=== PATIENT | female | born 1990 | race American Indian/Alaskan Native ===

== ENCOUNTER 2017-06-17 06:33 | Day surgery (SDC) | payer MEDICAID ==
--- NOTE | 2017-06-17 07:45 | Anesthesia Consultation ---
Anesthesia Consult and Med Hx Date of service: 06/17/17 - Airway Anesthetic Teeth Evaluation: Good ROM Head & Neck: Adequate Mental/Hyoid Distance: Adequate Mallampati Class: Class II Intubation Access Assessment: Probably Good - Pulmonary Exam CTA: Yes - Cardiac Exam Cardiac Exam: RRR - Pre-Operative Health Status ASA Pre-Surgery Classification: ASA2 Proposed Anesthetic Plan: MAC - Pulmonary Hx Smoking: No Hx Sleep Apnea: No - Cardiovascular System Hx Hypertension: Yes - Endocrine Hx Non-Insulin Dependent Diabetes: No - Other Systems Hx Obesity: Yes
--- NOTE | 2017-06-17 07:46 | Anesthesia Day of Surgery ---
Anesthesia Day of Surgery - Day of Surgery Patient Examined: Yes Patient H&P Reviewed: Yes Patient is NPO: Yes
--- NOTE | 2017-06-17 08:07 | Discharge Summary ---
Providers - Providers Attending physician: CHELA TRAN Hospitalization Hospital course: 27 y.o. presented to GI for EGD. Pt tolerated the procedure well Disposition: DC-01 TO HOME OR SELFCARE Core Measure Documentation - Palliative Care Palliative Care/ Comfort Measures: Not Applicable - Core Measures Any of the following diagnoses?: none Exam - Physical Exam Narrative exam: No change from prior Plan Activity: no restrictions Diet: other (bariatric plan diet ) Follow up with: YARELIS SWEENEY [Other] - 7 Days
[2017-06-17] MEDS ORDERED: DIPRIVAN 10 MG/ML IV ONE (08:08)
[2017-06-17] MEDS ORDERED: NACL 0.9% 1000 ML 1,000 ML IV SCH (10:00)
[2017-06-17 12:23] VITALS: BP 137/85
--- NOTE | 2017-06-17 12:32 | Post Anesthesia Evaluation ---
- Post Anesthesia Evaluation Patient Participated: Yes Airway Patent: Yes Stable Respiratory Function: Yes Nausea/Vomiting: No Temp > 96.8F: Yes Pain Manageable: Yes Adequeate Hydration: Yes Anesthesia Complications: No Block Receding Appropriately: Not Applicable Patient on Ventilator: No
== END 2017-06-17 06:34 | disposition home or self-care (01) ==
LOC: GIO 06:33
PROVIDERS: ATTEND Surgery
DX: R10.13 Epigastric pain (principal); K44.9 Diaphragmatic hernia without obstruction or gangrene; E66.01 Morbid (severe) obesity due to excess calories; I10 Essential (primary) hypertension; Z82.49 Family history of ischemic heart disease and other diseases of the circulatory system; Z83.3 Family history of diabetes mellitus; Z68.42 Body mass index [BMI] 45.0-49.9, adult; Z90.49 Acquired absence of other specified parts of digestive tract
CPT/HCPCS: 43235; 81025; J2704; J7030

== ENCOUNTER 2017-06-24 07:30 | Inpatient (IN) | payer MEDICAID ==
[~2017-06-24 07:30] MED LIST: PEPCID IV NR; TRANSDERM-SCOP TD NR; VERSED IV NR
[2017-06-24] MEDS ORDERED: NACL BACTERIOSTATIC INFILTRATI ONE (08:49)
[2017-06-24] MEDS ORDERED: ZOFRAN IV PRN ×2 (08:51→10:23)
--- NOTE | 2017-06-24 08:51 | Anesthesia Day of Surgery ---
Anesthesia Day of Surgery - Day of Surgery Patient Examined: Yes Patient H&P Reviewed: Yes Patient is NPO: Yes
--- NOTE | 2017-06-24 08:55 | Anesthesia Consultation ---
Anesthesia Consult and Med Hx Date of service: 06/24/17 - Airway Anesthetic Teeth Evaluation: Good ROM Head & Neck: Adequate Mental/Hyoid Distance: Adequate Mallampati Class: Class II Intubation Access Assessment: Probably Good - Pulmonary Exam CTA: Yes - Cardiac Exam Cardiac Exam: RRR - Pre-Operative Health Status ASA Pre-Surgery Classification: ASA3 Proposed Anesthetic Plan: General - Pulmonary Hx Smoking: No Hx Asthma: No Hx Sleep Apnea: No - Cardiovascular System Hx Hypertension: No - Central Nervous System Hx Psychiatric Problems: No - Endocrine Hx Non-Insulin Dependent Diabetes: No - Other Systems Hx Alcohol Use: No Hx Substance Use: No Hx Cancer: No Hx Obesity: Yes (morbid, BMI > 40)
[2017-06-24] MEDS ORDERED: ANCEF/STERILE WATER 2 GM/20 ML 2 GM/20 ML SYRINGE IV NR (09:00)
[2017-06-24] MEDS: LACTATED RINGERS 1,000 ML IV SCH ×3 (09:00→18:32)
[2017-06-24] MEDS ORDERED: FLAGYL 500 MG/100 ML 500 MG/100 ML BAG IV NR (09:00)
[2017-06-24] MEDS ORDERED: LOVENOX SUB-Q NR (09:00)
[2017-06-24 09:05] LABS: Basophils % (Auto) 0.9 % (0.0-1.8); Eosinophils % (Auto) 0.7 % (0.0-4.3); Hematocrit 37.5 % (30.3-42.9); Hemoglobin 12.6 gm/dl (10.1-14.3); Mean Corpuscular HGB Conc 34 % (30-34); Mean Corpuscular Hemoglobin 28 pg (28-32); Mean Corpuscular Volume 84 fl (79-97); Platelet Count 394 K/mm3 (140-440); Red Blood Count 4.45 M/mm3 (3.65-5.03); Red Cell Distribution Width 13.3 % (13.2-15.2); White Blood Count 8.7 K/mm3 (4.5-11.0)
[2017-06-24] MEDS ORDERED: XYLOCAINE 1% 20 mL ONE (09:24)
[2017-06-24] MEDS ORDERED: MARCAINE-EPI/PF 0.5%-1:200,000 INFILTRATI ONE ×2 (09:25→10:57)
[2017-06-24 09:27] LABS: Anion Gap 21 mmol/L; BUN/Creatinine Ratio 9; Blood Urea Nitrogen 7 mg/dL (7-17); Calcium 9.4 mg/dL (8.4-10.2); Carbon Dioxide 28 mmol/L (22-30); Chloride 93.3 mmol/L (98-107); Glucose 120 mg/dL (65-100); Potassium 3.5 mmol/L (3.6-5.0); Sodium 139 mmol/L (137-145)
[2017-06-24 09:30] LABS: Bacteria,Urine 1+ /HPF (Negative); Bilirubin,Urine NEG (Negative); Blood,Urine NEG (Negative); Ketones,Urine 80 mg/dL (Negative); Leukocyte Esterase,Urine NEG (Negative); Mucus,Urine FEW /HPF; Nitrite,Urine NEG (Negative); Urobilinogen,Urine < 2.0 mg/dL (<2.0)
[2017-06-24] MEDS ORDERED: DIPRIVAN 10 MG/ML IV ONE (10:06)
[2017-06-24] MEDS ORDERED: SUBLIMAZE ONE (10:06)
[2017-06-24] MEDS ORDERED: APRESOLINE IV PRN (10:23)
[2017-06-24] MEDS ORDERED: REGLAN IV PRN (10:23)
[2017-06-24] MEDS ORDERED: DILAUDID IV PRN (10:23)
[2017-06-24] MEDS ORDERED: XYLOCAINE MPF 2% ONE (10:34)
[2017-06-24] MEDS ORDERED: QUELICIN ONE (10:34)
[2017-06-24] MEDS ORDERED: ZEMURON IV ONE (10:34)
[2017-06-24] MEDS ORDERED: DECADRON ONE (10:49)
[2017-06-24] MEDS ORDERED: ROBINUL ONE ×2 (10:50→11:02)
[2017-06-24] MEDS ORDERED: NEOSTIGMINE ONE (10:50)
[2017-06-24] MEDS ORDERED: NACL 0.9% IR ONE ×2 (10:56→11:24)
[2017-06-24] MEDS ORDERED: XYLOCAINE 1% 20 mL INFILTRATI ONE (10:56)
[2017-06-24] MEDS ORDERED: NEO SYNEPHRINE ONE (11:01)
[2017-06-24] MEDS ORDERED: TORADOL ONE (11:20)
--- NOTE | 2017-06-24 11:54 | Operative Report ---
Operative Report Operative Report: Operative Report DATE OF PROCEDURE: 06/24/17 PREOPERATIVE DIAGNOSES: Morbid obesity, hiatal hernia POSTOPERATIVE DIAGNOSES: 1.same as pre-op SURGEON: Vikram Watson M.D. CUSTOM DRESSMAKER: Favian Vasquez CSA PROCEDURE: 1. laparoscopic sleeve gastrectomy 2. laparoscopic hiatal hernia repair ANESTHESIA: General. ESTIMATED BLOOD LOSS: <5 mL. COMPLICATIONS: None. SPECIMEN: Partial gastrectomy. FINDINGS: 1. hiatal hernia INDICATION FOR PROCEDURE: Patient is a 27-year-old female with a long history of morbid obesity. She has tried multiple efforts at weight loss without manager long term care success. She is here today for sleeve gastrectomy. PROCEDURE IN DETAIL: After consent was reviewed, patient was taken back to the operating room, where patient was placed supine on the bed with both arms out. The patient's legs were doubly strapped to the bed. Patient had a foot board in place. Patient had a body warmer placed by anesthesia. Patient was then prepped and draped in normal sterile surgical fashion. After a time-out was called, I made a stab incision in the left sub costal and placed a Veress needle through this incision and insufflated the abdomen to 18 mmHg pressure. I then counted down a handsbreadth below the xiphoid process in the midline and slightly left lateral injected local anesthetic and made about 0.5 cm transverse incision. I then used a 5-mm Optiview trocar to enter into the abdomen. I then placed a 45- degree scope through this port and inspected the abdomen. There was no injury on entry of the abdomen. I then placed one 5-mm port in the right upper quadrant , and 1 subxiphoid below the costovertebral angle. I then placed a 15-mm port about a handsbreadth right lateral and inferior to my RUQ port. I then placed left upper quadrant port along the anterior axillary line in a similar fashion. I then placed the liver retractor through the subxiphoid port and placed the patient in full reverse Trendelenburg. The GE junction was noted to be above the level of the diaphragm. The right and left crura were skeletonized accentuating a small hiatal hernia. The stomach and 2cm of distal esophagus were reduced into the abdominal cavity without tension. An anterior cruraplasty was performed with a figure-of-8 stitch using surgidac suture to reapproximate the crura. I then identified the pylorus and then counted off 6cm from the pylorus. I then used a LigaSure cutting device to enter into the lesser sac. At that point and then I took down the short gastrics all the way up to the left allan. Then I had anesthesia pass down a 36-Samo[place] bougie along the lesser curvature of the stomach. I made sure everything else was out of the abdomen except the bougie. I then created my gastric sleeve using a 60-mm laparoscopic stapler. . The sleeve looked good without any twisting or torsion. I then had anesthesia to remove the bougie. Hemostasis was obtained along the staple line. I then used Tiseel along the entirety of the staple line and some on the liver. I then removed liver grasper and took it off the field. I then removed the stomach through the 15-mm port. I then closed that fascia with a #1 PDS in a [id number] fashion using a Varun-Davey. I then desufflated the abdomen and then removed all port sites. I then closed the incisions with 4-0 Monocryl in subcuticular fashion. I then dressed the wounds with Dermabond. Patient tolerated the procedure well and was transferred to recovery room in good and stable condition.
[2017-06-24] MEDS: DILAUDID IV PRN ×3 (12:15→12:38)
[2017-06-24] MEDS: MORPHINE IV PRN ×2 (15:37→20:46)
[2017-06-24] MEDS: MYLICON PO PRN ×2 (17:29→22:39)
[2017-06-24] MEDS: TORADOL IV SCH (18:27)
[2017-06-24] MEDS: ANCEF/NS 1 GM/50 ML 1 GM/50 ML BAG IV SCH (18:28)
[2017-06-24] MEDS: FLAGYL 500 MG/100 ML 500 MG/100 ML BAG IV SCH ×2 (18:28→22:40)
[2017-06-24 22:38] LABS: Bacteria,Urine 1+ /HPF (Negative); Bilirubin,Urine NEG (Negative); Blood,Urine NEG (Negative); Ketones,Urine 80 mg/dL (Negative); Leukocyte Esterase,Urine NEG (Negative); Mucus,Urine FEW /HPF; Nitrite,Urine NEG (Negative); Urobilinogen,Urine < 2.0 mg/dL (<2.0)
[2017-06-25] MEDS: ANCEF/NS 1 GM/50 ML 1 GM/50 ML BAG IV SCH (03:21)
[2017-06-25] MEDS: TORADOL IV SCH ×2 (03:22→13:59)
[2017-06-25 04:47] LABS: Basophils % (Auto) 0.1 % (0.0-1.8); Hematocrit 33.6 % (30.3-42.9); Hemoglobin 11.3 gm/dl (10.1-14.3); Mean Corpuscular HGB Conc 34 % (30-34); Mean Corpuscular Hemoglobin 29 pg (28-32); Mean Corpuscular Volume 86 fl (79-97); Platelet Count 344 K/mm3 (140-440); Red Blood Count 3.92 M/mm3 (3.65-5.03); Red Cell Distribution Width 13.7 % (13.2-15.2); White Blood Count 9.4 K/mm3 (4.5-11.0)
[2017-06-25 05:01] LABS: Alanine Aminotransferase 22 units/L (7-56); Albumin 3.4 g/dL (3.9-5); Albumin/Globulin Ratio 1.1 %; Alkaline Phosphatase 69 units/L (35-129); Anion Gap 19 mmol/L; BUN/Creatinine Ratio 8; Blood Urea Nitrogen 5 mg/dL (7-17); Calcium 8.8 mg/dL (8.4-10.2); Carbon Dioxide 25 mmol/L (22-30); Chloride 99.9 mmol/L (98-107); Glucose 98 mg/dL (65-100); Sodium 140 mmol/L (137-145); Total Protein 6.4 g/dL (6.3-8.2)
[2017-06-25] MEDS: FLAGYL 500 MG/100 ML 500 MG/100 ML BAG IV SCH (05:07)
[2017-06-25] MEDS: LACTATED RINGERS 1,000 ML IV SCH (05:13)
[2017-06-25] MEDS: NORCO PO PRN ×2 (09:30→14:00)
[2017-06-25] MEDS: MYLICON PO PRN (09:31)
[2017-06-25] MEDS ORDERED: LOVENOX SUB-Q SCH (10:00)
[2017-06-25 12:13] VITALS: BP 100/57
--- NOTE | 2017-06-25 13:58 | Discharge Summary ---
Providers - Providers Date of Admission: 06/24/17 07:34 Date of discharge: 06/25/17 Attending physician: CHELA TRAN Hospitalization Reason for admission: s/p lap gastric sleeve Condition: Good Procedures: lap gastric sleeve Hospital course: pt was admitted for observation after an uneventful lap gastric sleeve. She remained afebrile and stable overnight. She is tolerating liquids, and ambulating. She is showing no clinical signs of leak or bleeding. She is discharged to home to follow up in the office in two weeks. Disposition: DC-01 TO HOME OR SELFCARE Core Measure Documentation - Palliative Care Palliative Care/ Comfort Measures: Not Applicable - Core Measures Any of the following diagnoses?: none Exam - Constitutional Vitals: Temp Pulse Resp BP Pulse Ox 97.7 F 65 16 100/56 100 06/25/17 11:37 06/25/17 11:37 06/25/17 11:37 06/25/17 11:37 06/25/17 11:26 General appearance: Present: no acute distress - Neck Neck: Present: supple - Respiratory Respiratory effort: normal - Abdominal General gastrointestinal: Present: other (incisions c/d/i, appropriatly tender to palpation) Plan Activity: advance as tolerated Diet: other (sugar free clear liquids) Wound: open to air Follow up with: YARELIS SWEENEY [Other] - 7 Days
[2017-06-27] MEDS ORDERED: TRANSDERM-SCOP TD SCH (09:00)
== END 2017-06-25 16:00 | disposition home or self-care (01) | DRG 327 ==
LOC: 3A 07:34 → 3B-SURG 12:05
PROVIDERS: ADMIT Surgery; ATTEND Surgery
PROC: 0DB64Z3 Excision of Stomach, Percutaneous Endoscopic Approach, Vertical (ICD-10-PCS; principal; 2017-06-24)
PROC: 0BQT4ZZ Repair Diaphragm, Percutaneous Endoscopic Approach (ICD-10-PCS; 2017-06-24)
DX: K44.9 Diaphragmatic hernia without obstruction or gangrene (principal); Z68.41 Body mass index [BMI] 40.0-44.9, adult; E66.01 Morbid (severe) obesity due to excess calories
CPT/HCPCS: 36415; 80048; 80053; 81001; 81025; 85025; 88307; 94760; A4217; C9250; J0330; J0360; J0690; J1100; J1170; J1650; J1885; J2250; J2270; J2370; J2405; J2704; J2710; J3010; J7120